=== PATIENT | female | born 1990 | race Caucasian/White ===

== ENCOUNTER 2017-01-28 19:55 | Emergency (ER) | payer BC, OTHER ==
[~2017-01-28] VITALS: Ht 154.9 cm; Wt 54.7 kg
[~2017-01-28 19:55] MED LIST: NUVARING; [UNRECOGNIZED DRUG - OTHER]
[2017-01-28] MEDS ORDERED: SODIUM CHLORIDE 0.9% 1,000ML IVBOLUS ONE (20:30)
[2017-01-28] MEDS ORDERED: SODIUM CHLORIDE FLUSH 10ML SYR IVF ONE (20:30)
[2017-01-28] MEDS ORDERED: ONDANSETRON 2MG/ML, 2ML IVPush ONE (20:30)
[2017-01-28 20:41] LABS: PATH.CAST-FLAG NOT PRESENT; SPERM-FLAG NOT PRESENT; SRC-FLAG NOT PRESENT; XTAL-FLAG NOT PRESENT; YLC-FLAG NOT PRESENT
[2017-01-28 20:51] LABS: BLOOD UREA NITROGEN 12 mg/dL (7-18)
[2017-01-28] MEDS ORDERED: MORPHINE SULFATE 4 MG/ML, 1ML ONE (20:55)
[2017-01-28] MEDS ORDERED: PROCHLORPERAZINE 5 MG/ML, 2ML ONE (20:55)
[2017-01-28] MEDS ORDERED: MORPHINE SULFATE 4 MG/ML, 1ML IVPush PRN (21:00)
[2017-01-28 21:08] LABS: DIFF TOTAL CELLS COUNTED 100 CELL DIFF
[2017-01-28 21:17] LABS: VERIFY COUNTS? YES
[2017-01-28 21:18] LABS: HYPOCHROMIA 1+; POLYCHROMASIA 1+
[2017-01-28 22:21] VITALS: BP 119/70
[2017-01-28] MEDS ORDERED: OMNIPAQUE 350 MG/ML, 100ML BOTTLE ONE (23:58)
== END 2017-01-28 22:25 | disposition home or self-care (01) ==
LOC: ED 22:08
DX: R10.815 Periumbilic abdominal tenderness (principal); R10.31 Right lower quadrant pain; R10.30 Lower abdominal pain, unspecified
CPT/HCPCS: 36415; 74177; 80048; 81001; 82040; 84703; 85025; 96361; 96374; 96375; 99285; J7030; Q9967